=== PATIENT | female | born 1970 | race American Indian/Alaskan Native ===

== ENCOUNTER 2019-12-12 09:02 | Day surgery (SDC) | payer OTHER ==
[2019-12-12] MEDS ORDERED: HYDROmorphone 1 MG/1 ML INJ IV PRN (10:02)
[2019-12-12] MEDS ORDERED: ONDANSETRON 4 MG/2 ML INJ IV PRN (10:02)
[2019-12-12] MEDS ORDERED: MAGNESIUM OXIDE 400 MG TAB PO NR (10:03)
--- NOTE | 2019-12-12 10:04 | Anesthesia Day of Surgery ---
Anesthesia Day of Surgery - Day of Surgery Patient Examined: Yes Patient H&P Reviewed: Yes Patient is NPO: Yes
--- NOTE | 2019-12-12 10:04 | Anesthesia Consultation ---
Anesthesia Consult and Med Hx Date of service: 12/12/19 - Airway Anesthetic Teeth Evaluation: Chipped ROM Head & Neck: Adequate Mental/Hyoid Distance: Adequate Mallampati Class: Class II Intubation Access Assessment: Probably Good - Pre-Operative Health Status ASA Pre-Surgery Classification: ASA3 Proposed Anesthetic Plan: General - Pulmonary Hx Sleep Apnea: Yes - Cardiovascular System Hx Hypertension: Yes (AT LEAST 9 YRS) Hx Coronary Artery Disease: No (Pt reports negative ETT last year) - Central Nervous System Hx Back Pain: Yes (SHOULDER/NECK(BREAST)) Hx Psychiatric Problems: No - Gastrointestinal Hx Gastroesophageal Reflux Disease: Yes - Other Systems Hx Alcohol Use: Yes (OCCA) Hx Substance Use: No Hx Cancer: No Hx Obesity: Yes
[2019-12-12] MEDS ORDERED: ACETAMINOPHEN 500 MG TAB PO NR (10:30)
[2019-12-12] MEDS ORDERED: LIDOCAINE 1%/EPINEPHRINE 1:100,000 VIAL (20 ML) INFILTRATI ONE ×2 (10:45→12:50)
[2019-12-12] MEDS ORDERED: LACTATED RINGERS 1,000 ML IV SCH (11:00)
[2019-12-12] MEDS ORDERED: CELECOXIB 200 MG CAP PO NR (11:00)
[2019-12-12] MEDS ORDERED: GABAPENTIN 300 MG CAP PO NR (11:00)
[2019-12-12] MEDS ORDERED: MIDAZOLAM 2 MG/2 ML INJ IV NR (11:00)
[2019-12-12] MEDS ORDERED: PROPOFOL 200 MG/20 ML VIAL IV ONE (11:49)
[2019-12-12] MEDS ORDERED: GLYCOPYRROLATE 0.4 MG/2 ML INJ ONE (11:49)
[2019-12-12] MEDS ORDERED: NEOSTIGMINE 10MG/10 ML INJ MDV ONE (11:49)
[2019-12-12] MEDS ORDERED: dexAMETHasone 20 MG/5 ML VIAL ONE (11:49)
[2019-12-12] MEDS ORDERED: PHENYLEPHRINE/NS 1,000 MCG/10 ML SYRINGE (OR USE) IV ONE (11:49)
[2019-12-12] MEDS ORDERED: LIDOCAINE MPF (2%) 20 MG/1 ML VIAL 5 ML ONE (11:49)
[2019-12-12] MEDS ORDERED: ROCURONIUM 50 MG/5 ML INJ IV ONE (11:49)
[2019-12-12] MEDS ORDERED: ONDANSETRON 4 MG/2 ML INJ ONE (11:49)
[2019-12-12] MEDS ORDERED: fentaNYL 250 MCG/5 ML INJ ONE (11:49)
[2019-12-12] MEDS ORDERED: SUCCINYLCHOLINE CHLORIDE 200 MG/10 ML INJ MDV ONE (11:49)
[2019-12-12] MEDS ORDERED: SODIUM CHLORIDE 0.9% 1000 ML 1,000 ML, EPINEPHrine/PF 1:1,000 1 MG, LIDOCAINE 1% 20 mL ... IJ SCH (12:00)
[2019-12-12] MEDS ORDERED: ceFAZolin/STERILE WATER 2 GM/20 ML SYRINGE IV NR (12:00)
[2019-12-12] MEDS ORDERED: SODIUM CHLORIDE 0.9% IRR 1,500 ML BOTTLE IR ONE (12:51)
[2019-12-12] MEDS ORDERED: HYDROmorphone 1 MG/1 ML INJ ONE (16:01)
[2019-12-12] MEDS ORDERED: KETOROLAC 30 MG/1 ML INJ ONE (16:01)
--- NOTE | 2019-12-12 17:17 | Operative Report ---
Operative Report Operative Report: Plastic Surgery Operative Note Preoperative Diagnosis: Symptomatic bilateral macromastia Post Operative Diagnosis: Same Procedure: Bilateral breast reduction Surgeon: Dr. Tati Ying Compliance Engineer: ANYA Cain Anesthesia: General Specimens: Right and left breast tissue, excised 900g right breast; 700g on the left EBL: 50cc Procedure: After review of pertinent history and physical exam findings the patient was brought into the operating room and placed supine on the OR table. After induction of adequate general anesthesia the patient's chest was prepped and draped in the usual sterile surgical fashion. To begin, krishnamurthy were refreshed and measurements double checked and we reduced the right breast as follows: A 9cm inferior pedicle was outlined and de-epithelialized save the nipple and areola complex, which was measured out using a 4.5cm diameter and left completely attached to the inferior pedicle. After this, following a Clifton pattern, skin incisions were made to elevate breast flaps superiorly and excise excess tissue on the medial and lateral aspect of the pedicle. Hemostasis was maintained with electrocautery. Saline solution was then used to irrigate the breast tissue and, satisfied with hemostasis and volume, we began to a 3-layered closure using 2-0 Monocryl and 3-0 Monoderm sutures. The same procedure was performed on the left side, with tissue re-arrangement and excision based on an inferior pedicle being performed to preserve the nipple areolar complex and as much breast tissue as possible for symmetry. Once all incisions were closed, they were sealed with Dermabond and dressed with Telfa and tegaderm dressings. This was followed by placement of a surgical bra. The patient was then awakened from general anesthesia and transferred to PACU in stable condition. There were no complications. All sponge needle and instrument counts were correct at the end of the case.
[2019-12-12] MEDS ORDERED: HYDROcodone/ACETAMINOPHEN 5-325 MG TAB PO PRN (17:46)
[2019-12-12 19:55] VITALS: BP 148/82
== END 2019-12-12 09:03 | disposition home or self-care (01) ==
LOC: OR 09:02
PROVIDERS: ATTEND Plastic Surgery
DX: N62 Hypertrophy of breast (principal); I10 Essential (primary) hypertension; G47.30 Sleep apnea, unspecified; K21.9 Gastro-esophageal reflux disease without esophagitis; E66.9 Obesity, unspecified; Z68.36 Body mass index [BMI] 36.0-36.9, adult; Z72.89 Other problems related to lifestyle; Z79.899 Other long term (current) drug therapy; Z98.890 Other specified postprocedural states
CPT/HCPCS: 19318; 81025; 88305; J0171; J0330; J0690; J1100; J1170; J1885; J2250; J2370; J2405; J2704; J2710; J3010; J7030; J7120